=== PATIENT | male | born 1965 | race African-American/Black ===

== ENCOUNTER 2019-03-30 10:12 | Day surgery (SDC) | payer OTHER ==
[2019-03-30] MEDS ORDERED: LIDOCAINE HCL/PF 2% SDV 5ML VIAL ONE (10:49)
[2019-03-30] MEDS ORDERED: DEXAMETHASONE SOD PHOSPHATE 4 MG/1 ML VIAL ONE (10:49)
[2019-03-30 11:07] VITALS: BMI 31.8
[2019-03-30] MEDS ORDERED: PROPOFOL 20 ML ONE ×2 (11:44)
[2019-03-30] MEDS ORDERED: MIDAZOLAM HCL 2 MG/2 ML SINGLE DOSE VIAL ONE (11:45)
[2019-03-30] MEDS ORDERED: GENTAMICIN SO4 80 MG/2 ML VIAL ONE (12:10)
[2019-03-30] MEDS ORDERED: ceFAZolin SODIUM 1 GM VIAL ONE (12:10)
[2019-03-30] MEDS ORDERED: GENTAMICIN SO4 80 MG/2 ML VIAL IVPB ONE (12:12)
[2019-03-30] MEDS ORDERED: ceFAZolin SODIUM 1 GM VIAL IVPB ONE (12:13)
[2019-03-30] MEDS ORDERED: FUROSEMIDE 40 MG/4 ML INJECTABLE VIAL ONE (12:41)
[2019-03-30] MEDS ORDERED: oxyCODONE HCL 5 MG TABLET PO PRN (13:32)
--- NOTE | 2019-03-30 13:34 | OP ---
Operative Note - Note: Operative Date: 03/30/19 Pre-Operative Diagnosis: retained/encrusted rt ureteral stent Operation: laser litho/ureteroscopy/stent Post-Operative Diagnosis: Same as Pre-op Surgeon: Ad Sheldon Anesthesia: General Specimens Removed: encrusted stent, and stone Estimated Blood Loss (mls): 5 Operative Report Dictated: Yes
[2019-03-30] MEDS ORDERED: ELECTROLYTE-148 SOLN 1,000 ML IV SCH (13:45)
[2019-03-30] MEDS ORDERED: ONDANSETRON 4 MG/2 ML VIAL IVPUSH PRN (13:48)
[2019-03-30] MEDS ORDERED: LACTATED RINGERS SOLUTION 1,000 ML IV SCH (14:00)
--- NOTE | 2019-03-30 14:21 | OP ---
DATE OF OPERATION: 03/30/2019 PREOPERATIVE DIAGNOSIS: Retained and encrusted right ureteral stent. POSTOPERATIVE DIAGNOSIS: Retained and encrusted right ureteral stent. PROCEDURE: Cystoscopy, laser lithotripsy, ureteroscopy, and removal of stent. SURGEON: Bridget Banegas MD INDICATION: Patient is a 53-year-old male with retained right ureteral stent for a year, taken to the OR for ureteroscopy, laser lithotripsy. DESCRIPTION OF PROCEDURE: Patient taken to the OR and placed supine on the table. Cardiac monitoring administered. General anesthesia established. He was prepped and draped in dorsal supine position. The rigid cystoscope was inserted into the urethra without difficulty, and the bladder was visualized. A stent was seen emanating from the right ureteral orifice and stent was completely encrusted. Using the 365- laser fiber, the stone was broken up at a setting of 1.0 joules and 10 Hz until all the stone was removed from the stent. The stent was also disintegrating with the laser as well. Pieces of the stent would also disintegrate if the laser touched the stent, indicating that the stent had lost its durability. At this point, now, with that cleaned up, a guidewire was advanced alongside the stent into the right renal pelvis, and then, the stent grasped, but could not be pulled. There was evidence of calcification at the proximal coil that was in the kidney. So, over the remaining guidewire, a flexible ureteroscope was advanced into the kidney, and using the laser fiber, the proximal curl of the encrusted stent in the renal pelvis was lasered until it was completely fragmented. The entire ureter was inspected, also, and there was no stone attached to the ureteral portion of the stent. At this point then, the stent could be removed in its entirety and was removed from the patient and sent to Pathology. Repeat ureteroscopy revealed evidence of panureteral edema and some mild narrowing from the retained stent. The renal pelvis was visualized. There was also a 5-mm stone noted in the renal pelvis, and this was pulverized to fine dust and 1- to 2-mm fragments with the 365-micron laser fiber. No other stones were noted. Ureteroscope was then removed, and a 7-[place]ian, 26-cm, double-pigtail stent was then advanced in monorail fashion. Fluoroscopy confirmed the stent to be in good position. Patient was awoken from anesthesia and transferred to recovery room in stable condition. There were no complications. Estimated blood loss was minimal. BRIDGET BANEGAS M.D. LIBRA/[id number] MTDD
[2019-03-30] MEDS ORDERED: ACETAMINOPHEN 1000 MG/100 ML VIAL (NON FORMULARY) IVPB ONE ×2 (14:55→15:00)
[2019-03-30] MEDS ORDERED: ACETAMINOPHEN INJECTION 100 ML IVPB ONE (14:57)
[2019-03-30] MEDS ORDERED: HYDROmorphone HCl 2 MG/ML VIAL ONE (14:57)
[2019-03-30] MEDS ORDERED: HYDROmorphone HCl 2 MG/ML VIAL IVPUSH ONE ×2 (14:58→15:00)
[2019-03-30 16:23] VITALS: TEMP 97.5
[2019-03-30 16:59] VITALS: PULSE 65
[2019-03-30 17:02] VITALS: BP 154/98
--- NOTE | 2019-04-03 17:08 | PATH ---
Surgical Pathology Report Patient Name: SAM RICHARDSON Med. Rec. #: [id number] /Age/Gender: 1965 (Age: 53) / M Account: [id number] Location: [facility] Taken: 03/30/2019 Received: 03/31/2019 Reported: 04/03/2019 Physicians: Ad Sheldon M.D. Specimen(s) Received A: RIGHT URETERAL STENT B: RENAL CALCULI Clinical History Right stent exchange/right kidney stones Final Diagnosis A. URETERAL STENT, RIGHT, REMOVAL: URETERAL STENT. MACROSCOPIC DIAGNOSIS. B. URETERAL STONES, RIGHT, LASER LITHOTRIPSY: URETEROLITHIASIS. MACROSCOPIC DIAGNOSIS. Electronically Signed Rosa Marie M.D. Gross Description A. Received fresh labeled "ureteral stent right," is a 36 cm in length blue, coiled portion of tubing, consistent with a ureteral stent. No soft tissue is present. No sections are submitted, gross only. B. Received fresh labeled "right ureteral stones," is a 2.7 x 1.1 x 0.3 cm aggregate of ruiz-yellow, irregular to fragmented calculi. The specimen is sent for chemical analysis. /03/31/2019 saudi03/31/2019
== END 2019-03-30 17:29 | disposition home or self-care (01) ==
LOC: JASU-SURG 10:12
PROVIDERS: ATTEND Urology
PROC: 0TF68ZZ Fragmentation in Right Ureter, Via Natural or Artificial Opening Endoscopic (ICD-10-PCS; principal; 2019-03-30 11:30)
PROC: 0T768DZ Dilation of Right Ureter with Intraluminal Device, Via Natural or Artificial Opening Endoscopic (ICD-10-PCS; 2019-03-30 11:30)
DX: N20.1 Calculus of ureter (principal); I10 Essential (primary) hypertension; E11.9 Type 2 diabetes mellitus without complications; Z79.84 Long term (current) use of oral hypoglycemic drugs
CPT/HCPCS: 36415; 76000-TC-FY; 82962; 88300-TC; 94760; J0131